=== PATIENT | female | born 1935 | race Caucasian/White ===

== ENCOUNTER → 2016-12-11 | Outpatient (CLI) | payer MEDICARE, BC ==
[~2016-12-11] MED LIST: BENAZEPRIL PO; GUANFACINE PO; VYTORIN PO
--- NOTE | ~2016-12-11 | MY11 ---
[facility] A Service of [facility] & [facility] RADIOLOGY TEXT RESULTS PATIENT: CHRISTOPHERFEBRUARY Edwardo LOCATION: [facility] : 37 UNIT #: [id number] AGE: [address]: James Barnes MD SEX: F ORDER DR: [id number] [facility] [address] [place], [place] [address] [id number] O MR#: [id number] Acc #: [id number] NAME: CHRISTOPHER FEBRUARY : 1935 SEX: F STUDY DATE/TIME: 12/11/2016 13:22 UNIT: [facility] ROOM: STUDY DESCRIPTION: MY Mammogram Screening Dig Marquez Attending Physician: James Barnes M.D. Referring Physician: James Barnes M.D. Ordering Physician: James Barnes M.D. Primary Care Physician: James Barnes M.D. MEDICAL IMAGING REPORT This report is preliminary unless electronic signature is present EXAM Bilateral digital screening mammogram with CAD. COMPARISON December 09, 2015; November 30, 2014; November 20, 2013; November 14, 2012; November 12, 2011; November 10, 2010; November 07, 2009; and November 05, 2008. INDICATIONS Breast cancer screening. 81-year-old asymptomatic female. No personal history of breast cancer. History of benign right breast biopsy many years ago. FINDINGS There are scattered fibroglandular densities. In the posterior third of the lateral left breast, there is an apparent developing asymmetry, possibly with associated architectural distortion measuring 8 mm. In the right breast, only seen on the posterior nipple line and posterior third, there is an 8-mm asymmetry which appears to be developing. IMPRESSION Single asymmetries, which appear to be developing each breast only seen on CC projection. Further evaluation with bilateral diagnostic mammography is recommend to include spot compression CC views bilaterally as well as bilateral rolled medial and rolled lateral CC views. This may be followed by bilateral breast ultrasound. Patients over the age of 40 are entered into a reminder system with target due date for the next mammogram. A result letter will also be sent to the patient. BIRADS: 0 Incomplete; Need additional imaging evaluation and/or prior mammograms for comparison. Dictated by... [facility] Service of [facility] & [facility] RADIOLOGY TEXT RESULTS PATIENT: CHRISTOPHERFEBRUARY Edwardo LOCATION: [facility] : 37 UNIT #: [id number] AGE: [address]: James Barnes MD SEX: F ORDER DR: Reuben Amador M.D. THIS IS AN ELECTRONICALLY VERIFIED REPORT Reuben Amador M.D. at 12/18/2016 6:17 AM Ariel TD: 12/12/2016 07:42 JOB #: [id number] MEDICAL IMAGING REPORT COPY
== END | disposition home or self-care (01) ==
LOC: CWCC 13:05
DX: Z12.31 Encounter for screening mammogram for malignant neoplasm of breast (principal); N64.89 Other specified disorders of breast
CPT/HCPCS: G0202

== ENCOUNTER → 2016-12-22 | Outpatient (CLI) | payer MEDICARE, BC ==
--- NOTE | ~2016-12-22 | US17 ---
[facility] A Service of [facility] & [facility] RADIOLOGY TEXT RESULTS PATIENT: CHRISTOPHERFEBRUARY Edwardo LOCATION: [facility] : 37 UNIT #: [id number] AGE: [address]: James Barnes MD SEX: F ORDER DR: [id number] [facility] [address] [place], [place] [address] [id number] O MR#: [id number] Acc #: [id number] NAME: CHRISTOPHER FEBRUARY : 1935 SEX: F STUDY DATE/TIME: 12/22/2016 12:55 UNIT: [facility] ROOM: STUDY DESCRIPTION: US Breast Bilateral Attending Physician: James Barnes M.D. Ordering Physician: James Barnes M.D. Primary Care Physician: James Barnes M.D. MEDICAL IMAGING REPORT This report is preliminary unless electronic signature is present EXAM Targeted bilateral breast ultrasound, 12/22/2016 INDICATIONS Correlation with additional mammographic views bilaterally, same date. TECHNIQUE Targeted ultrasound of the lateral hemisphere left breast was performed. Targeted ultrasound of the lateral hemisphere right breast was performed. No comparisons. Correlation is made with mammography 12/22/2016. FINDINGS The patient was initially scanned independently by the technologist and then rescanned in my presence. I also personally scanned the patient. LEFT BREAST: Imaging of the lateral hemisphere left breast is negative, with the exception of a benign epidermal inclusion cyst or sebaceous cyst at 4 o'clock, 1 cm from the nipple, measuring about 5 x 4 mm. There is a clear tail extending to the skin surface. This requires no additional followup. Imaging findings with mammography are concordant. The asymmetry in the left breast on the patient's mammogram appeared to largely resolve with the additional mammographic views. RIGHT BREAST: Imaging of the right breast lateral hemisphere was performed, as well. In the 11 o'clock position in the right breast near the nipple, there is a shadowing, calcified oil cyst. Some of the technologist images are labeled at 9 o'clock, but this localizes to 11 o'clock upon repeat imaging by the technologist and myself and corresponds to the oil cyst on the patient's mammogram. In the 11 o'clock position right breast about 2 cm from the nipple, there is a microlobulated, slightly hypoechoic, solid-appearing nodule with some marginal edged shadowing and internal color flow. It is surrounded by relatively dense STS. [facility] A Service of [facility] RADIOLOGY TEXT RESULTS PATIENT: CHRISTOPHERFebruary LOCATION: [facility] : 37 UNIT #: [id number] AGE: [address]: James Barnes MD SEX: F ORDER DR: breast tissue. This is felt to most likely correspond to the asymmetry on the patient's mammogram. This measures up to 1.0 x 0.5 cm. Given that this area appears more prominent on the patient's mammogram than on prior comparison studies, targeted ultrasound-guided core biopsy of this area is recommended. At the time of biopsy, clip placement is recommended for correlation with the patient's mammogram. If this corresponds to the mammographic abnormality, then imaging findings would be concordant. If they are discordant, however, stereotactic biopsy of the mammographic abnormality will likely be necessary for further assessment. The asymmetry on the patient's mammogram has changed when compared to prior comparison studies. Imaging of the remainder of the lateral hemisphere right breast demonstrates no additional finding, with the exception of a tiny intramammary node at 9 o'clock, 4 cm from the nipple measuring 3 mm. This demonstrated a fatty hilum and feeding vessel. IMPRESSION 1. There is an indeterminate hypoechoic lesion in the 11 o'clock position of the right breast. This is felt to most likely correspond to the asymmetry on the patient's mammogram that has become more conspicuous compared to prior studies. Ultrasound-guided core biopsy of this area is recommended for further assessment. See discussion above regarding recommendation for clip placement and correlation with the patient's mammogram to ensure that the findings between modalities are concordant. Findings and recommendation for biopsy have been discussed with the patient and also communicated to the Breast Mailing Clerk, who is in the process of notifying the ordering physician office of Dr. Barnes the recommendation for biopsy, as well. The patient has been counseled to discontinue her ibuprofen medication for about 5 days prior to the biopsy. 2. There is an incidental benign intramammary node in the right breast at 9 o'clock, and there is a calcified oil cyst at 11 o'clock. 3. Imaging of the lateral hemisphere left breast demonstrates a benign epidermoid inclusion cyst or sebaceous cyst at 4 o'clock. This is a benign finding and requires no additional followup. Please see the separately dictated mammography report for further details. Patients over the age of 40 are entered into a reminder system with target due date for the next mammogram. A result letter will also be sent to the patient. BIRADS: 4 Suspicious Abnormality; Biopsy Should Be Considered STAT * RESULT Dictated by... Adiel Mandujano M.D. [facility] A Service of [facility] RADIOLOGY TEXT RESULTS PATIENT: CHRISTOPHERFebruary LOCATION: [facility] : 37 UNIT #: [id number] AGE: [address]: James Barnes MD SEX: F ORDER DR: THIS IS AN ELECTRONICALLY VERIFIED REPORT Adiel Mandujano M.D. at 12/22/2016 5:28 PM ES/eloy TD: 12/22/2016 16:51 JOB #: [id number] MEDICAL IMAGING REPORT Page 1 of 1 COPY
--- NOTE | ~2016-12-22 | MY6 ---
[facility] A Service of [facility] RADIOLOGY TEXT RESULTS PATIENT: CHRISTOPHERFEBRUARY Edwardo LOCATION: [facility] : 37 UNIT #: [id number] AGE: [address]: James Barnes MD SEX: F ORDER DR: [id number] [facility] [place], [place] [address] [id number] O MR#: [id number] Acc #: [id number] NAME: CHRISTOPHER FEBRUARY : 1935 SEX: F STUDY DATE/TIME: 12/22/2016 12:26 UNIT: [facility] ROOM: STUDY DESCRIPTION: MY Mammogram Dx Dig Marquez Attending Physician: James Barnes M.D. Ordering Physician: James Barnes M.D. Primary Care Physician: James Barnes M.D. MEDICAL IMAGING REPORT This report is preliminary unless electronic signature is present EXAM Additional views of both breasts and targeted ultrasound of both breasts, 12/22/2016. HISTORY 81-year-old female with asymmetries in both breasts on recent screening study. Additional views and targeted ultrasound recommended for further assessment. TECHNIQUE Rolled CC and compression CC views of the right and left breast were performed. COMPARISON STUDIES 12/11/2016, 12/09/2015, 11/30/2014, 11/20/2013, 11/14/2012. FINDINGS LEFT BREAST: The asymmetry in the lateral hemisphere, left breast, on the patient's recent screening study appears to become less conspicuous on the rolled views and the spot compression CC view. This is favored to represent a summation artifact mammographically. Targeted ultrasound was also performed for further assessment. RIGHT BREAST: In the right breast, the asymmetry in the posterior nipple line on the CC projection persists on spot compression and rolled views. It is associated with an area of asymmetric fibroglandular prominence that has been seen on multiple prior mammography studies and is unchanged. Targeted ultrasound of the right breast was also thereafter performed. ULTRASOUND FINDINGS: The patient was initially scanned independently by the technologist and then rescanned in my presence. I also personally scanned the patient. [facility] A Service of [facility] & [facility] RADIOLOGY TEXT RESULTS PATIENT: YOSVANY WHITE LOCATION: [facility] : 37 UNIT #: [id number] AGE: [address]: James Barnes MD SEX: F ORDER DR: LEFT BREAST: Imaging of the left breast was performed from the 12 o'clock through the 6 o'clock positions to encompass the entire lateral hemisphere. Imaging is negative with the exception of an incidental epidermal inclusion cyst or sebaceous cyst at 4 o'clock 1 cm from the nipple. Imaging findings with mammography are concordant and return to annual screening is recommended. RIGHT BREAST: Imaging of the right breast was performed to encompass the entire lateral hemisphere, as well, where the nodular asymmetry localized laterally on the mammogram. There is a shadowing calcified oil cyst in the 11 o'clock position, right breast, corresponding to an oil cyst on the patient's mammogram. In the 11 o'clock position right breast about 2 cm from the nipple, there is an oval-shaped area of decreased echogenicity surrounded by relatively dense adjacent breast tissue. This measures up to about 1 cm on ultrasound. It is best visualized under real-time surveillance. There are microlobulated margins, and there is internal color flow. This does not demonstrate significant posterior acoustical shadowing. This is felt to most likely correspond to the mammographic finding. Given the interval change mammographically and the fact there is a target on ultrasound, ultrasound-guided core biopsy is recommended for further assessment. At the time of biopsy, clip placement is recommended for correlation with the patient's mammogram to ensure that the imaging findings are concordant. If this does not represent the same area identified on the patient's mammogram, then stereotactic biopsy of the mammographic abnormality will likely be necessary at that point for further assessment. Imaging of the lateral hemisphere, right breast, was otherwise negative. Findings and recommendations for biopsy on the right have been discussed with the patient and also communicated to the breast manager of care. They are in the process of notifying the ordering physician office of Dr. James Barnes with recommendations for biopsy, as well. The patient has been asked to withhold her Ibuprofen medication for 5 days prior the scheduled biopsy. She has voiced understanding and agreement. IMPRESSION 1. The asymmetric density in the lateral hemisphere, left breast, on the patient's recent screening mammogram becomes less conspicuous with additional views today. Ultrasound of the lateral hemisphere, left breast, is negative, with the exception of a benign epidermal inclusion cyst at 4 o'clock. Return to annual screening on the left is recommended. 2. On the right, the asymmetry in the lateral hemisphere central right breast, persists on additional spot compression views. Ultrasound demonstrates a probable correlate at 11 o'clock 2 cm from the nipple, measuring up to about 1 cm. Ultrasound-guided core biopsy is recommended for further assessment. At the time of biopsy, clip placement is recommended to confirm that the ultrasound finding STS. [facility] A Service of [facility] RADIOLOGY TEXT RESULTS PATIENT: CHRISTOPHERFebruary LOCATION: [facility] : 37 UNIT #: [id number] AGE: [address]: James Barnes MD SEX: F ORDER DR: corresponds to the mammographic abnormality. If findings are discordant on biopsy, then stereotactic biopsy of the nodular asymmetry on the patient's mammogram will likely be necessary at that point for further assessment. 3. Incidental calcified oil cyst in the upper outer right breast at 11 o'clock, seen on both ultrasound and mammography. 4. The breast manager of care and the patient are aware of the recommendation for biopsy on the right. The office of Dr. Barnes is in the process of being notified by the breast manager of care for scheduling the procedure. Patients over the age of 40 are entered into a reminder system with target due date for the next mammogram. A result letter will also be sent to the patient. BIRADS: 4 Suspicious abnormality; biopsy should be considered. STAT * RESULT Dictated by... Adiel Mandujano M.D. THIS IS AN ELECTRONICALLY VERIFIED REPORT Adiel Mandujano M.D. at 12/22/2016 5:28 PM Brayden TD: 12/22/2016 14:26 JOB #: [id number] MEDICAL IMAGING REPORT Page 1 of 1 COPY
== END | disposition home or self-care (01) ==
LOC: CMAM 11:52
DX: R92.8 Other abnormal and inconclusive findings on diagnostic imaging of breast (principal); R92.2 Inconclusive mammogram
CPT/HCPCS: 76641; G0204

== ENCOUNTER → 2016-12-31 | Outpatient (CLI) | payer MEDICARE, BC ==
--- NOTE | ~2016-12-31 | US200 ---
[facility] A Service of [facility] RADIOLOGY TEXT RESULTS PATIENT: CHRISTOPHERFEBRUARY LOCATION: [facility] : 37 UNIT #: [id number] AGE: [address]: James Barnes MD SEX: F ORDER DR: [id number] [facility] [address] [place], [place] [address] [id number] O MR#: [id number] Acc #: [id number] NAME: YOSVANY WHITE : 1935 SEX: F STUDY DATE/TIME: 01/07/2017 239 UNIT: [facility] ROOM: STUDY DESCRIPTION: US Breast Guided Bx 1st Lesion Attending Physician: James Barnes M.D. Referring Physician: James Barnes M.D. Ordering Physician: James Barnes M.D. Primary Care Physician: James Barnes M.D. MEDICAL IMAGING REPORT This report is preliminary unless electronic signature is present ADDENDUM EXAM Ultrasound guided breast biopsy report 12/31/2016 ADDENDUM Pathology results have been obtained. 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 No malignancy is identified. Imaging results and pathology results are concordant. Consider 6 month followup right mammogram to document expected stability in the appearance of the right breast. JOB #: [id number] Dictated by... James Avila Jr., M.D. THIS IS AN ELECTRONICALLY VERIFIED REPORT James Avila Jr., M.D. at 01/08/2017 8:45 PM Armando TD: 01/07/2017 16:02 JOB #: [id number] MEDICAL IMAGING REPORT Page 1 of 1 COPY
== END | disposition home or self-care (01) ==
LOC: CWCC 07:40
PROC: 0HBT3ZX Excision of Right Breast, Percutaneous Approach, Diagnostic (ICD-10-PCS; principal; 2016-12-31)
DX: N60.21 Fibroadenosis of right breast (principal); N64.89 Other specified disorders of breast
CPT/HCPCS: 88305; 88344; G0204

== ENCOUNTER → 2017-06-22 | Outpatient (CLI) | payer MEDICARE, BC ==
--- NOTE | ~2017-06-22 | MY25 ---
[facility] A Service of [facility] RADIOLOGY TEXT RESULTS PATIENT: YOSVANY WHITE LOCATION: [facility] : 37 UNIT #: [id number] AGE: [address]: James Barnes MD SEX: F ORDER DR: [id number] [facility] [address] [place], [place] [address] [id number] O MR#: [id number] Acc #: [id number] NAME: YOSVANY WHITE : 1935 SEX: F STUDY DATE/TIME: 06/22/2017 13:27 UNIT: [facility] ROOM: STUDY DESCRIPTION: CHRIS ELIZONDO W/ CAD UNI RT Attending Physician: James Barnes M.D. Referring Physician: James Barnes M.D. Ordering Physician: James Barnes M.D. Primary Care Physician: James Barnes M.D. MEDICAL IMAGING REPORT This report is preliminary unless electronic signature is present EXAM Right digital diagnostic mammogram INDICATIONS Previous right breast biopsy on 12/31/2016 suggesting 6-month post-biopsy followup of right breast mass. TECHNIQUE CC and MLO views of the right breast. Images obtained on a digital mammography unit. A FDA-approved CAD device was utilized. COMPARISON Post-biopsy mammogram from 12/31/2016. FINDINGS Scattered fibroglandular density. Persistent mass in the anterior right breast, measuring approximately 11 mm. It is not significantly changed from the prior. The biopsy marker clip is stable in position. No new dominant mass or suspicious calcification. IMPRESSION Stable appearance of the right breast mass. No change compared with 12/31/2016. Recommend patient return for bilateral screening in December 2017. BIRADS: 2 Benign Finding. Patients over the age of 40 are entered into a reminder system with target due date for the next mammogram. A result letter will also be sent to the patient. [facility] A Service of [facility] & [facility] RADIOLOGY TEXT RESULTS PATIENT: YOSVANY WHITE LOCATION: [facility] : 37 UNIT #: [id number] AGE: [address]: James Barnes MD SEX: F ORDER DR: Dictated by... Isreal Russell M.D. THIS IS AN ELECTRONICALLY VERIFIED REPORT Isreal Russell M.D. at 06/23/2017 8:05 AM EED/pcl TD: 06/22/2017 16:39 JOB #: [id number] MEDICAL IMAGING REPORT Page 1 of 1 COPY
== END | disposition home or self-care (01) ==
LOC: CWCC 13:07
DX: R92.8 Other abnormal and inconclusive findings on diagnostic imaging of breast (principal); N63 Unspecified lump in breast
CPT/HCPCS: G0206